=== PATIENT | male | born 1950 | race Hispanic/Latino ===

== ENCOUNTER 2022-07-20 10:24 | Outpatient (CLI) | payer OTHER | END 2022-07-20 10:25 | disposition home or self-care (01) | LOC: CSHRAD 10:24 | PROVIDERS: ATTEND Student in an Organized Health Care Education/Training Program | DX: M25.512 Pain in left shoulder (principal); Z87.81 Personal history of (healed) traumatic fracture ==

== ENCOUNTER 2023-04-18 14:45 | Outpatient (CLI) | payer OTHER | END 2023-04-18 14:46 | disposition home or self-care (01) | LOC: CSHRAD 14:45 | PROVIDERS: ATTEND Student in an Organized Health Care Education/Training Program | DX: M79.604 Pain in right leg (principal); M54.50 Low back pain, unspecified; M46.1 Sacroiliitis, not elsewhere classified; M47.816 Spondylosis without myelopathy or radiculopathy, lumbar region | CPT/HCPCS: 72100; 72202 ==